=== PATIENT | female | born 1950 | race Caucasian/White ===

== ENCOUNTER 2020-07-12 22:35 | Inpatient (IN) | payer OTHER ==
[~2020-07-12] VITALS: Ht 154.9 cm; Wt 63.5 kg
[2020-07-12 23:29] LABS: HEMOGLOBIN 15.4 gm/dl (12.3-15.3); RED BLOOD COUNT 5.03 M/UL (4.00-5.10); WHITE BLOOD COUNT 10.2 K/UL (4.5-11.0)
[2020-07-12 23:49] LABS: BUN/CREATININE RATIO 20 (0-10)
[2020-07-13] MEDS ORDERED: LIPITOR TAB 1010 MG PO (03:53)
[2020-07-13] MEDS ORDERED: SINGULAIR10 MG PO (03:53)
[2020-07-13] MEDS ORDERED: LISINOPRIL5 MG PO (03:53)
[2020-07-13] MEDS ORDERED: ZETIA10 MG PO (03:55)
[2020-07-13] MEDS ORDERED: VENTOLIN HFA 66.7 GM INH (03:56)
[2020-07-13] MEDS ORDERED: ALBUTEROL1.25 MG/3 INH (03:57)
[2020-07-13 09:13] LABS: LDH, BODY FLUID 305 U/L; TOTAL PROTEIN, BODY FLUID 4.5 gm/dL
[2020-07-13] MEDS ORDERED: ASPIRIN CHEWABL81 MG PO (09:14)
[2020-07-13] MEDS ORDERED: MULTI-VITAMIN1 EACH PO (09:15)
[2020-07-13 09:23] LABS: BODY FLUID SOURCE PLEURAL
[2020-07-13 09:24] LABS: RBC (AUTOMATED) 1100 (0-100000); WBC (AUTOMATED) 1738 (0-500)
[2020-07-14 03:31] LABS: HEMOGLOBIN 13.8 gm/dl (12.3-15.3); WHITE BLOOD COUNT 11.7 K/UL (4.5-11.0)
[2020-07-14 03:33] LABS: RED BLOOD COUNT 4.4 M/UL (4.00-5.10)
[2020-07-14 03:55] LABS: BUN/CREATININE RATIO 22 (0-10)
[2020-07-15 06:26] LABS: HEMOGLOBIN 13.1 gm/dl (12.3-15.3); RED BLOOD COUNT 4.42 M/UL (4.00-5.10)
[2020-07-15 06:29] LABS: WHITE BLOOD COUNT 8.6 K/UL (4.5-11.0)
[2020-07-15 06:31] LABS: BUN/CREATININE RATIO 26 (0-10)
[2020-07-16 05:05] LABS: HEMOGLOBIN 14.1 gm/dl (12.3-15.3); RED BLOOD COUNT 4.54 M/UL (4.00-5.10)
[2020-07-16 05:09] LABS: WHITE BLOOD COUNT 12.5 K/UL (4.5-11.0)
[2020-07-16 05:19] LABS: BUN/CREATININE RATIO 30 (0-10)
== END 2020-07-17 14:39 | disposition critical access hospital (66) | DRG 180 ==
LOC: ER1 22:35 → CCU 07-13 00:59 → CDU 07-13 00:59 → CCU 07-13 03:41
PROVIDERS: Internal Medicine; Internal Medicine Pulmonary Disease; Physician Assistant; ADMIT Internal Medicine
PROC: 5A09457 Assistance with Respiratory Ventilation, 24-96 Consecutive Hours, Continuous Positive Airway Pressure (ICD-10-PCS; 2020-07-13)
PROC: 0W993ZX Drainage of Right Pleural Cavity, Percutaneous Approach, Diagnostic (ICD-10-PCS; 2020-07-13)
PROC: BB4BZZZ Ultrasonography of Pleura (ICD-10-PCS; 2020-07-13)
PROC: 0B938ZX Drainage of Right Main Bronchus, Via Natural or Artificial Opening Endoscopic, Diagnostic (ICD-10-PCS; 2020-07-14)
PROC: 0BB38ZX Excision of Right Main Bronchus, Via Natural or Artificial Opening Endoscopic, Diagnostic (ICD-10-PCS; 2020-07-14)
PROC: B24BZZ4 Ultrasonography of Heart with Aorta, Transesophageal (ICD-10-PCS; principal; 2020-07-14 07:30)
PROC: 0W9930Z Drainage of Right Pleural Cavity with Drainage Device, Percutaneous Approach (ICD-10-PCS; 2020-07-17)
DX: C34.31 Malignant neoplasm of lower lobe, right bronchus or lung (principal); J96.01 Acute respiratory failure with hypoxia; J18.9 Pneumonia, unspecified organism; J96.02 Acute respiratory failure with hypercapnia; J91.0 Malignant pleural effusion; C85.90 Non-Hodgkin lymphoma, unspecified, unspecified site; J44.0 Chronic obstructive pulmonary disease with (acute) lower respiratory infection; Z51.5 Encounter for palliative care; F17.210 Nicotine dependence, cigarettes, uncomplicated; I10 Essential (primary) hypertension; F41.9 Anxiety disorder, unspecified; Z20.822 Contact with and (suspected) exposure to COVID-19; E78.5 Hyperlipidemia, unspecified; Z85.3 Personal history of malignant neoplasm of breast; Z90.11 Acquired absence of right breast and nipple; Z88.1 Allergy status to other antibiotic agents; Z88.0 Allergy status to penicillin; Z88.2 Allergy status to sulfonamides; Z88.8 Allergy status to other drugs, medicaments and biological substances
CPT/HCPCS: ECHO; 0240U; 36415; 36600; 71045; 80048; 80053; 82550; 82553; 82803; 83605; 83615; 83735; 83874; 84157; 84484; 85025; 85027; 86140; 87015; 87040; 87070; 87116; 87205; 87206; 88341; 88342; 89051; 93005; 93306; 94640; 94660; 94760; 96374; 99285; C1729; C9113; J0692; J1335; J1650; J1940; J2405; J2704; J2920; J2930; J3010; J7040; J7050; J7120; Q9967